=== PATIENT | male | born 1970 | race Hispanic/Latino ===

== ENCOUNTER 2017-10-18 13:43 | Emergency (ER) | payer OTHER ==
[2017-10-18] MEDS ORDERED: CATAPRES PO ONE ×2 (16:54→17:54)
--- NOTE | 2017-10-18 16:54 | Emergency Department Report ---
ED Headache HPI - General Chief Complaint: High BP Stated Complaint: HYPERTENSION/HEADACHE Time Seen by Provider: 10/18/17 16:51 Source: police - History of Present Illness Initial Comments: Patient is a 46-year-old male who is presenting with high blood pressure and headache. Patient does take blood pressurehe has not taken it today. Patient is in police custody. Patient states headache is 8 out of 10 in severity global patient denies nausea vomiting diarrhea headache chest pain shortness of breath at this time. Allergies/Adverse Reactions: Allergies No Known Allergies Allergy (Unverified 10/18/17 16:11) Home Medications: Ambulatory Orders Lisinopril/Hydrochlorothiazide [Zestoretic 10-12.5 mg Tablet] 1 each PO DAILY # 30 tablet 10/18/17 ED Review of Systems ROS: Stated complaint: HYPERTENSION/HEADACHE Other details as noted in HPI Comment: All other systems reviewed and negative ED Past Medical Hx - Past Medical History Previous Medical History?: Yes Hx Hypertension: Yes - Surgical History Past Surgical History?: No - Medications Home Medications: Home Medications Medication Instructions Recorded Confirmed Last Taken Type Lisinopril/Hydrochlorothiazide 1 each PO DAILY #30 tablet 10/18/17 Unknown Rx [Zestoretic 10-12.5 mg Tablet] ED Physical Exam - General Limitations: No Limitations General appearance: alert, in no apparent distress - Head Head exam: Present: atraumatic, normocephalic - Eye Eye exam: Present: normal appearance - ENT ENT exam: Present: mucous membranes moist - Neck Neck exam: Present: normal inspection - Respiratory Respiratory exam: Present: normal lung sounds bilaterally. Absent: respiratory distress - Cardiovascular Cardiovascular Exam: Present: regular rate, normal rhythm. Absent: systolic murmur, diastolic murmur, rubs, gallop - GI/Abdominal GI/Abdominal exam: Present: soft, normal bowel sounds - Rectal Rectal exam: Present: deferred - Extremities Exam Extremities exam: Present: normal inspection - Back Exam Back exam: Present: normal inspection - Neurological Exam Neurological exam: Present: alert, oriented X3 - Psychiatric Psychiatric exam: Present: normal affect, normal mood - Skin Skin exam: Present: warm, dry, intact, normal color. Absent: rash ED Course Vital Signs 10/18/17 10/18/17 10/18/17 16:12 18:45 19:34 Temperature 98.3 F Pulse Rate 79 79 Respiratory 18 16 Rate Blood Pressure 198/109 215/131 Blood Pressure 144/91 [Left] O2 Sat by Pulse 100 Oximetry ED Medical Decision Making - Radiology Data Radiology results: report reviewed Head CT shows no acute process - Medical Decision Making Blood pressure improved with clonidine patient will be discharged in police custody Critical care attestation.: If time is entered above; I have spent that time in minutes in the direct care of this critically ill patient, excluding procedure time. ED Disposition Clinical Impression: Hypertensive urgency Disposition: DC-01 TO HOME OR SELFCARE Is pt being admited?: No Does the pt Need Aspirin: No Condition: Stable Prescriptions: Lisinopril/Hydrochlorothiazide [Zestoretic 10-12.5 mg Tablet] 1 each PO DAILY # 30 tablet Referrals: PRIMARY CARE, [Primary Care Provider] - 3-5 Days
[2017-10-18] MEDS ORDERED: MOTRIN PO ONE (16:55)
--- NOTE | 2017-10-18 17:15 | Cat Scan Report ---
FINAL REPORT EXAM: CT HEAD/BRAIN WO CON HISTORY: headache TECHNIQUE: CT examination of the head without IV contrast PRIORS: None. FINDINGS: No acute air-fluid level visualized in the included air-filled sinuses. Bone windows demonstrate no acute fracture. The brain is without mass, mass effect, hemorrhage, or acute infarct. There is no extra-axial intracranial bleed, brain bleed, or midline shift. The ventricles and sulci are age-appropriate. IMPRESSION: No acute CVA, intracranial bleed, or brain mass
[2017-10-18] MEDS ORDERED: ULTRAM ONE (18:42)
[2017-10-18] MEDS ORDERED: ULTRAM PO ONE (18:52)
[2017-10-18 19:35] VITALS: BP 144/91
== END 2017-10-18 20:11 | disposition home or self-care (01) ==
LOC: ED 13:43
DX: I16.0 Hypertensive urgency (principal); I10 Essential (primary) hypertension
CPT/HCPCS: 70450; 99284

== ENCOUNTER 2017-10-24 15:34 | Inpatient (IN) | payer OTHER ==
[2017-10-24] MEDS ORDERED: ASPIRIN PO ONE (15:47)
[2017-10-24 18:25] LABS: Amorphous Crystals,Urine Few; Bilirubin,Urine NEG (Negative); Blood,Urine NEG (Negative); Color,Urine Yellow (Yellow); Mucus,Urine FEW /HPF; Nitrite,Urine NEG (Negative); Protein,Urine <15 mg/dL mg/dL (Negative)
[2017-10-24 18:43] LABS: Basophils # (Auto) 0.1 K/mm3 (0.0-0.1); Basophils % (Auto) 1.3 % (0.0-1.8); Eosinophils # (Auto) 0.2 K/mm3 (0.0-0.4); Eosinophils % (Auto) 2.1 % (0.0-4.3); Hematocrit 48.4 % (35.5-45.6); Hemoglobin 16.5 gm/dl (11.8-15.2); Lymphocytes # (Auto) 3.2 K/mm3 (1.2-5.4); Lymphocytes % (Auto) 33.7 % (13.4-35.0); Mean Corpuscular HGB Conc 34 % (32-34); Mean Corpuscular Hemoglobin 30 pg (28-32); Mean Corpuscular Volume 88 fl (84-94); Monocytes # (Auto) 0.9 K/mm3 (0.0-0.8); Platelet Count 309 K/mm3 (140-440); Red Blood Count 5.49 M/mm3 (3.65-5.03)
--- NOTE | 2017-10-24 18:44 | XRay Report ---
FINAL REPORT EXAM: XR CHEST 1V AP HISTORY: cp TECHNIQUE: upright single view chest PRIORS: None. FINDINGS: Cardiac and mediastinal contours are unremarkable. No focal pulmonary infiltrate is identified. No pleural fluid collection seen. Pulmonary vasculature is unremarkable. IMPRESSION: Negative single-view chest
[2017-10-24] MEDS ORDERED: ASPIRIN ONE (18:53)
[2017-10-24 18:58] LABS: INR 0.89 (0.87-1.13); Partial Thromboplastin Time 30.8 Sec. (24.2-36.6)
[2017-10-24 19:19] LABS: BUN/Creatinine Ratio 21; Blood Urea Nitrogen 19 mg/dL (9-20); Calcium 9.8 mg/dL (8.4-10.2); Hemolysis Index 9
[2017-10-24 19:21] LABS: Alanine Aminotransferase 20 units/L (7-56); Albumin 4.7 g/dL (3.9-5)
--- NOTE | 2017-10-24 19:27 | Emergency Department Report ---
ED Chest Pain HPI - General Chief Complaint: Chest Pain Stated Complaint: CHEST PAIN Time Seen by Provider: 10/24/17 17:39 Source: patient Mode of arrival: Stretcher Limitations: No Limitations - History of Present Illness Initial Comments: Patient states he's had intermittent chest pain for a week. He claims that after he left and went to prison on his prior visit he developed chest pain that night. He did not complain of chest pain when he was seen by the emergency physician that day per the emergency department record. He was here for headache at that time. Patient states that he's had intermittent chest pain off and on for 8 days. However, he was here on the which was essentially 6 days ago. In any case he states the chest pain has become more nagging and persistent and radiating to his left arm and shoulder over the past 2 days. He was transported via EMS. He had been given nitroglycerin and aspirin I believe at the chair. Doesn't report any response to nitroglycerin. He states that he has never been to an emergency department or evaluation of chest pain at all. He has no cardiac history other than hypertension. He states the chest pain is just "pain". He is unable to describe it further. It is not associated with nausea vomiting dizziness diaphoresis or dyspnea. Patient states he is a smoker and thus he has some shortness of breath periodically. MD Complaint: chest pain -: week(s) Onset: during rest Pain Location: left chest Pain Radiation: LUE Severity: moderate Severity scale (0 -10): 4 Quality: other Consistency: intermittent (cannot describe) Improves With: nothing Worsens With: nothing re: denies: nausea, vomting, diaphoresis, dyspnea, sense of impending doom Other Symptoms: denies: cough, fever, syncope Treatments Prior to Arrival: aspirin, nitroglycerin Aspirin use within the Past 7 Days: (0) No - Related Data Previous Rx's Medication Instructions Recorded Last Taken Type Lisinopril/Hydrochlorothiazide 1 each PO DAILY #30 tablet 10/18/17 Unknown Rx [Zestoretic 10-12.5 mg Tablet] Allergies Allergy/AdvReac Type Severity Reaction Status Date / Time No Known Allergies Allergy Unverified 10/18/17 16:11 Heart Score - HEART Score History: Moderately suspicious EKG: Significant ST-depression Age: 45-65 Risk factors: > 3 risk factors or hx of atherosclerotic disease Troponin: < normal limit HEART Score: 6 - Critical Actions Critical Actions: 4-6 pts:12-16.6% risk of adverse cardiac event. Should be admitted ED Review of Systems ROS: Stated complaint: CHEST PAIN Other details as noted in HPI Constitutional: denies: chills, fever Eyes: denies: eye pain, eye discharge, vision change ENT: denies: ear pain, throat pain Respiratory: shortness of breath (occasionally but not associated with chest pain). denies: cough, wheezing Cardiovascular: chest pain. denies: palpitations Endocrine: no symptoms reported Gastrointestinal: denies: abdominal pain, nausea, diarrhea Genitourinary: denies: urgency, dysuria Musculoskeletal: denies: back pain, joint swelling, arthralgia Skin: denies: rash, lesions Neurological: denies: headache, weakness, paresthesias Psychiatric: denies: anxiety, depression Hematological/Lymphatic: denies: easy bleeding, easy bruising ED Past Medical Hx - Past Medical History Hx Hypertension: Yes Hx CVA: (tia) - Surgical History Past Surgical History?: No - Social History Smoking Status: Current Every Day Smoker Substance Use Type: Marijuana - Medications Home Medications: Home Medications Medication Instructions Recorded Confirmed Last Taken Type Lisinopril/Hydrochlorothiazide 1 each PO DAILY #30 tablet 10/18/17 Unknown Rx [Zestoretic 10-12.5 mg Tablet] ED Physical Exam - General Limitations: No Limitations General appearance: alert, in no apparent distress - Head Head exam: Present: atraumatic, normocephalic - Eye Eye exam: Present: normal appearance, PERRL, EOMI. Absent: scleral icterus - ENT ENT exam: Present: mucous membranes moist - Neck Neck exam: Present: normal inspection. Absent: tenderness, meningismus - Respiratory Respiratory exam: Present: normal lung sounds bilaterally. Absent: respiratory distress - Cardiovascular Cardiovascular Exam: Present: regular rate, normal rhythm. Absent: systolic murmur, diastolic murmur, rubs, gallop - GI/Abdominal GI/Abdominal exam: Present: soft, normal bowel sounds. Absent: distended, tenderness, guarding, rebound, rigid - Rectal Rectal exam: Present: deferred - Extremities Exam Extremities exam: Present: normal inspection - Back Exam Back exam: Present: normal inspection - Neurological Exam Neurological exam: Present: alert, oriented X3, CN II-XII intact. Absent: motor sensory deficit - Psychiatric Psychiatric exam: Present: normal affect, normal mood - Skin Skin exam: Present: warm, dry, intact, normal color. Absent: rash ED Course Vital Signs 10/24/17 10/24/17 10/24/17 15:38 18:07 18:08 Temperature 97.8 F 97.6 F Pulse Rate 83 72 Respiratory 19 14 14 Rate Blood Pressure 110/76 Blood Pressure 135/88 [Left] O2 Sat by Pulse 98 96 96 Oximetry - Reevaluation(s) Reevaluation #1: Patient's history was given to Dr. Wu of the hospitalist service. He stated to bridge the patient to telemetry where the night hospitalist will see the patient. I am going to place a consult to cardiology. I'm also going to place an order for an echocardiogram in the morning. 10/24/17 19:33 10/24/17 19:35 ZACHARIAH score - Zachariah Score Age > 65: (0) No Aspirin use within the Past 7 Days: (0) No 3 or more CAD Risk Factors: (1) Yes 2 or more Angina events in past 24 hrs: (1) Yes Known CAD with more than 50% Stenosis: (0) No Elevated Cardiac Markers: (0) No ST Deviation Greater than 0.5mm: (1) Yes ZACHARIAH Score: 3 ED Medical Decision Making - Lab Data Result diagrams: 10/24/17 18:22 10/24/17 18:22 Laboratory Results - last 24 hr 10/24/17 10/24/17 10/24/17 18:22 18:22 18:22 WBC 9.5 RBC 5.49 H Hgb 16.5 H Hct 48.4 H MCV 88 MCH 30 MCHC 34 RDW 13.0 L Plt Count 309 Lymph % (Auto) 33.7 [place] % (Auto) 9.0 H Eos % (Auto) 2.1 Baso % (Auto) 1.3 Lymph # 3.2 [place] # 0.9 H Eos # 0.2 Baso # 0.1 Seg Neutrophils % 53.9 Seg Neutrophils # 5.1 PT 12.5 INR 0.89 APTT 30.8 Sodium 140 Potassium 4.7 Chloride 97.5 L Carbon Dioxide 28 Anion Gap 19 BUN 19 Creatinine 0.9 Estimated GFR > 60 BUN/Creatinine Ratio 21 Glucose 85 Calcium 9.8 Magnesium Total Bilirubin Direct Bilirubin Indirect Bilirubin AST ALT Alkaline Phosphatase Troponin T < 0.010 NT-Pro-B Natriuret Pep Total Protein Albumin Albumin/Globulin Ratio Urine Color Urine Turbidity Urine pH Ur Specific [place] Urine Protein Urine Glucose (UA) Urine Ketones Urine Blood Urine Nitrite Urine Bilirubin Urine Urobilinogen Ur Leukocyte Esterase Urine WBC (Auto) Urine RBC (Auto) U Epithel Cells (Auto) Amorphous Crystals Urine Mucus 10/24/17 10/24/17 18:22 Unknown WBC RBC Hgb Hct MCV MCH MCHC RDW Plt Count Lymph % (Auto) [place] % (Auto) Eos % (Auto) Baso % (Auto) Lymph # [place] # Eos # Baso # Seg Neutrophils % Seg Neutrophils # PT INR APTT Sodium Potassium Chloride Carbon Dioxide Anion Gap BUN Creatinine Estimated GFR BUN/Creatinine Ratio Glucose Calcium Magnesium 2.30 Total Bilirubin 0.40 Direct Bilirubin < 0.2 Indirect Bilirubin 0.2 AST 12 ALT 20 Alkaline Phosphatase 73 Troponin T NT-Pro-B Natriuret Pep 139.7 Total Protein 7.2 Albumin 4.7 Albumin/Globulin Ratio 1.9 Urine Color Yellow Urine Turbidity Clear Urine pH 6.0 Ur Specific [place] 1.019 Urine Protein <15 mg/dl Urine Glucose (UA) Neg Urine Ketones Neg Urine Blood Neg Urine Nitrite Neg Urine Bilirubin Neg Urine Urobilinogen 4.0 Ur Leukocyte Esterase Neg Urine WBC (Auto) 2.0 Urine RBC (Auto) 2.0 U Epithel Cells (Auto) < 1.0 Amorphous Crystals Few Urine Mucus Few - EKG Data -: EKG Interpreted by [facility] EKG shows normal: sinus rhythm, axis, intervals - EKG Data Interpretation: other (the patient has Q's in the inferolateral leads. He also has inferolateral ST-T wave changes which may be consistent with ischemia.) Critical care attestation.: If time is entered above; I have spent that time in minutes in the direct care of this critically ill patient, excluding procedure time. ED Disposition Clinical Impression: Abnormal EKG Chest pain Qualifiers: Chest pain type: unspecified Qualified Code(s): R07.9 - Chest pain, unspecified Disposition: OP ADMIT IP TO THIS HOSP Is pt being admited?: Yes Does the pt Need Aspirin: Yes Condition: Stable Instructions: Chest Pain (ED) Referrals: PRIMARY CARE, [Primary Care Provider] - 3-5 Days Time of Disposition: 19:36
[2017-10-24 19:30] LABS: Bilirubin,Direct < 0.2 mg/dL (0-0.2)
[2017-10-24] MEDS ORDERED: MILK OF MAGNESIA PO PRN (22:53)
[2017-10-24] MEDS ORDERED: DULCOLAX PR PRN (22:53)
--- NOTE | 2017-10-24 22:55 | History and Physical Report ---
History of Present Illness Date of examination: 10/24/17 Date of admission: 10/24/17 19:39 History of present illness: 68-year-old man with a history of diabetes, hypertension was brought to the emergency room for chest pain , Chest pain is in the left substernal area which she describes a dull pain for 8 days, intermittent every 10 minutes, intensity 5 /10, radiating to left shoulder, he cannot identify exacerbating or relieving factors. Denies nausea vomiting, shortness rate, diaphoresis, palpitation Review of system Constitutional: no fever, no chills, no weight loss Ears, eyes, nose, mouth and throat: no nasal congestion, no nasal discharge, no sinus pressure, no vision change, no red eye. Neck: No neck pain or rigidity. Cardiovascular: no orthopnea, no palpitations, no leg swelling Respiratory: No cough, no congestion, no wheezing Gastrointestinal: abdominal pain, hematochezia, no nausea, no vomiting Genitourinary : no dysuria, frequency , no hematuria Musculoskeletal: no joint swelling or muscle ache Integumentary: no rash, no pruritis Neurological: no parathesias, no focal weakness Endocrine: no cold or heat intolerance, no polyuria or polydipsia Hematologic/Lymphatic: no easy bruising, no easy bleeding, no gland swelling Allergic/Immunologic: no urticaria, no angioedema. PAST MEDICAL HISTORY hypertension PAST SURGICAL HISTORY: None FAMILY HISTORY: Hypertention SOCIAL HISTORY: Denies one pack a day, marijuana use, no alcohol Medications and Allergies Allergies Allergy/AdvReac Type Severity Reaction Status Date / Time No Known Allergies Allergy Unverified 10/18/17 16:11 Home Medications Medication Instructions Recorded Confirmed Last Taken Type Lisinopril/Hydrochlorothiazide 1 each PO DAILY #30 tablet 10/18/17 10/24/17 Unknown Rx [Zestoretic 10-12.5 mg Tablet] Exam - Physical Exam Narrative exam: Gen. appearance: Patient lying in bed in no acute distress HEENT: Normocephalic/atraumatic, pupils equal round reactive to light, extra occular movement intact, no scleral icterus, no JVD or thyromegaly or nodule, neck is supple, mucous membrane moist, no erythema or exudate Heart: S1-S2, regular rate and rhythm Lungs: Clear to auscultation bilateral breathing comfortable Abdomen: Positive bowel sounds, nontender, nondistended, no organomegaly Extremities: No edema, cyanosis, clubbing Neuro:: Oriented 3 , cranial nerves II-12 intact, speech, motor intact Skin: No rash, nodules, warm dry - Constitutional Vitals: Temp Pulse Resp BP Pulse Ox 98.4 F 84 34 H 119/79 98 10/24/17 20:51 10/24/17 20:41 10/24/17 20:41 10/24/17 20:41 10/24/17 20:41 Results - Labs CBC & Chem 7: 10/24/17 18:22 10/24/17 18:22 Labs: Abnormal lab results 10/24/17 10/24/17 Range/Units 18:22 18:22 RBC 5.49 H (3.65-5.03) M/mm3 Hgb 16.5 H (11.8-15.2) gm/dl Hct 48.4 H (35.5-45.6) % RDW 13.0 L (13.2-15.2) % [place] % (Auto) 9.0 H (0.0-7.3) % [place] # 0.9 H (0.0-0.8) K/mm3 Chloride 97.5 L (98-107) mmol/L - Imaging and Cardiology EKG: image reviewed Chest x-ray: image reviewed Assessment and Plan Assessment Chest pain, rule out ACS Hypertension Plan Admit to medicine Check cardiac enzymes, stress tests Start aspirin, pain medication, DVT prophylaxis Continue appropriate outpatient medications
[2017-10-25 00:01] LABS: Creatine Kinase MB 1.2 ng/mL (0.0-4.0)
[2017-10-25] MEDS: PERCOCET 5/325 PO PRN ×3 (01:53→21:06)
[2017-10-25 05:55] LABS: Hematocrit 49.5 % (35.5-45.6); Hemoglobin 16.4 gm/dl (11.8-15.2); Mean Corpuscular HGB Conc 33 % (32-34); Mean Corpuscular Hemoglobin 30 pg (28-32); Mean Corpuscular Volume 90 fl (84-94); Platelet Count 299 K/mm3 (140-440); Red Cell Distribution Width 12.9 % (13.2-15.2)
[2017-10-25 06:11] LABS: BUN/Creatinine Ratio 23; Blood Urea Nitrogen 18 mg/dL (9-20)
[2017-10-25 06:12] LABS: Hemolysis Index 3
[2017-10-25 06:16] LABS: Creatine Kinase MB 1.4 ng/mL (0.0-4.0)
[2017-10-25 08:22] LABS: Band Neutrophils # (Manual) 0.5 K/mm3; Basophils % (Manual) 0 % (0.0-1.8); RBC Morphology Normal; Total Cells Counted 100
[2017-10-25] MEDS ORDERED: NON-FORMULARY (Lisinopril/Hydrochlorothiazide [Zestoretic 10-12.5 Mg Tablet] 1 EACH) PO SCH (10:00)
[2017-10-25] MEDS ORDERED: LEXISCAN IV ONE (10:13)
[2017-10-25] MEDS ORDERED: AMINOPHYLLINE IV ONE ×2 (10:45→11:00)
[2017-10-25] MEDS ORDERED: ZOFRAN ONE (10:59)
[2017-10-25] MEDS: ZOFRAN IV PRN (11:01)
--- NOTE | 2017-10-25 12:26 | Event Note ---
Date: 10/25/17 Detailed cardiology consultation dictated. A: #1: Chest pain #2: HTN #3: Chronic tobacco smoking P: Pt underwent lexiscan MPI stress test this AM which was positive for inferior ischemia, EF 50%. Coronary angiography recommended for definitive diagnosis. Indications, potential risks and benefits of LHC reviewed with pt and he is agreeable to proceed in AM. NPO after MN. Christopher SCHULTZ NP / DR. LOPEZ NAYLOR
[2017-10-25] MEDS ORDERED: NACL 0.9% 500 ML 500 ML IV SCH (14:00)
[2017-10-25] MEDS ORDERED: AMBIEN PO PRN (16:02)
[2017-10-25] MEDS: ASPIRIN PO SCH (16:29)
--- NOTE | 2017-10-25 18:50 | Progress Note ---
Assessment and Plan Assessment and plan: --Chest pain/acute coronary syndrome; patient had abnormal stress test Continue current cardiac medications, possible heart cath tomorrow, cardiology following --Hypertension; moderate control, continue current antihypertensives and when necessary medications --Ongoing tobacco use; smoking cessation counseling done, advised nicotine patch as needed --DVT prophylaxis; with Lovenox Closely monitor the patient and adjust management as needed Marco of care reviewed with the patient and his summer law associate at the bedside History Interval history: Patient seen and evaluated in his room medical records reviewed Security officers at the bedside Patient underwent stress test which was abnormal, cardiology planning left heart catheterization tomorrow Patient has no new complaints Hospitalist Physical - Constitutional Vitals: Temp Pulse Resp BP Pulse Ox 98.5 F 67 20 128/88 98 10/25/17 04:30 10/25/17 16:00 10/25/17 13:47 10/25/17 15:40 10/25/17 15:40 General appearance: Present: no acute distress, well-nourished - EENT Eyes: Present: PERRL, EOM intact - Neck Neck: Present: supple, normal ROM - Respiratory Respiratory effort: normal Respiratory: bilateral: diminished, negative: rales, rhonchi, wheezing - Cardiovascular Rhythm: regular Heart Sounds: Present: S1 & S2 - Extremities Extremities: no ischemia, No edema - Abdominal General gastrointestinal: soft, non-tender, non-distended, normal bowel sounds - Integumentary Integumentary: Present: clear, warm - Psychiatric Psychiatric: appropriate mood/affect, cooperative - Neurologic Neurologic: CNII-XII intact, moves all extremities Results - Labs CBC & Chem 7: 10/25/17 04:42 10/25/17 04:42 Labs: Laboratory Last Values WBC 13.3 K/mm3 (4.5-11.0) H 10/25/17 04:42 RBC 5.50 M/mm3 (3.65-5.03) H 10/25/17 04:42 Hgb 16.4 gm/dl (11.8-15.2) H 10/25/17 04:42 Hct 49.5 % (35.5-45.6) H 10/25/17 04:42 MCV 90 fl (84-94) 10/25/17 04:42 MCH 30 pg (28-32) 10/25/17 04:42 MCHC 33 % (32-34) 10/25/17 04:42 RDW 12.9 % (13.2-15.2) L 10/25/17 04:42 Plt Count 299 K/mm3 (140-440) 10/25/17 04:42 Lymph % (Auto) 33.7 % (13.4-35.0) 10/24/17 18:22 [place] % (Auto) 9.0 % (0.0-7.3) H 10/24/17 18:22 Eos % (Auto) 2.1 % (0.0-4.3) 10/24/17 18:22 Baso % (Auto) 1.3 % (0.0-1.8) 10/24/17 18:22 Lymph # Steel Welder 10/25/17 04:42 [place] # 0.9 K/mm3 (0.0-0.8) H 10/24/17 18:22 Eos # 0.2 K/mm3 (0.0-0.4) 10/24/17 18:22 Baso # 0.1 K/mm3 (0.0-0.1) 10/24/17 18:22 Add Manual Diff Complete 10/25/17 04:42 Total Counted 100 10/25/17 04:42 Seg Neutrophils % 53.9 % (40.0-70.0) 10/24/17 18:22 Seg Neuts % (Manual) 56.0 % (40.0-70.0) 10/25/17 04:42 Band Neutrophils % 4.0 % 10/25/17 04:42 Lymphocytes % (Manual) 32.0 % (13.4-35.0) 10/25/17 04:42 Reactive Lymphs % (Man) 0 % 10/25/17 04:42 Monocytes % (Manual) 7.0 % (0.0-7.3) 10/25/17 04:42 Eosinophils % (Manual) 1.0 % (0.0-4.3) 10/25/17 04:42 Basophils % (Manual) 0 % (0.0-1.8) 10/25/17 04:42 Metamyelocytes % 0 % 10/25/17 04:42 Myelocytes % 0 % 10/25/17 04:42 Promyelocytes % 0 % 10/25/17 04:42 Blast Cells % 0 % 10/25/17 04:42 Nucleated RBC % Not Reportable 10/25/17 04:42 Seg Neutrophils # 5.1 K/mm3 (1.8-7.7) 10/24/17 18:22 Seg Neutrophils # Man 7.4 K/mm3 (1.8-7.7) 10/25/17 04:42 Band Neutrophils # 0.5 K/mm3 10/25/17 04:42 Lymphocytes # (Manual) 4.3 K/mm3 (1.2-5.4) 10/25/17 04:42 Abs React Lymphs (Man) 0.0 K/mm3 10/25/17 04:42 Monocytes # (Manual) 0.9 K/mm3 (0.0-0.8) H 10/25/17 04:42 Eosinophils # (Manual) 0.1 K/mm3 (0.0-0.4) 10/25/17 04:42 Basophils # (Manual) 0.0 K/mm3 (0.0-0.1) 10/25/17 04:42 Metamyelocytes # 0.0 K/mm3 10/25/17 04:42 Myelocytes # 0.0 K/mm3 10/25/17 04:42 Promyelocytes # 0.0 K/mm3 10/25/17 04:42 Blast Cells # 0.0 K/mm3 10/25/17 04:42 WBC Morphology Not Reportable 10/25/17 04:42 Hypersegmented Neuts Not Reportable 10/25/17 04:42 Hyposegmented Neuts Not Reportable 10/25/17 04:42 Hypogranular Neuts Not Reportable 10/25/17 04:42 Smudge Cells Not Reportable 10/25/17 04:42 Toxic Granulation Not Reportable 10/25/17 04:42 Toxic Vacuolation Not Reportable 10/25/17 04:42 Dohle Bodies Not Reportable 10/25/17 04:42 Pelger-Huet Anomaly Not Reportable 10/25/17 04:42 Veena Rods Not Reportable 10/25/17 04:42 Platelet Estimate Not Reportable 10/25/17 04:42 Clumped Platelets Not Reportable 10/25/17 04:42 Plt Clumps, EDTA Not Reportable 10/25/17 04:42 Large Platelets Not Reportable 10/25/17 04:42 Giant Platelets Not Reportable 10/25/17 04:42 Platelet Satelliting Not Reportable 10/25/17 04:42 Plt Morphology Comment Not Reportable 10/25/17 04:42 RBC Morphology Normal 10/25/17 04:42 Dimorphic RBCs Not Reportable 10/25/17 04:42 Polychromasia Not Reportable 10/25/17 04:42 Hypochromasia Not Reportable 10/25/17 04:42 Poikilocytosis Not Reportable 10/25/17 04:42 Anisocytosis Not Reportable 10/25/17 04:42 Microcytosis Not Reportable 10/25/17 04:42 Macrocytosis Not Reportable 10/25/17 04:42 Spherocytes Not Reportable 10/25/17 04:42 Pappenheimer Bodies Not Reportable 10/25/17 04:42 Sickle Cells Not Reportable 10/25/17 04:42 Target Cells Not Reportable 10/25/17 04:42 Tear Drop Cells Not Reportable 10/25/17 04:42 Ovalocytes Not Reportable 10/25/17 04:42 Helmet Cells Not Reportable 10/25/17 04:42 [place] Bodies Not Reportable 10/25/17 04:42 [place] Rings Not Reportable 10/25/17 04:42 Jeremy Cells Not Reportable 10/25/17 04:42 Bite Cells Not Reportable 10/25/17 04:42 Crenated Cell Not Reportable 10/25/17 04:42 Elliptocytes Not Reportable 10/25/17 04:42 Acanthocytes (Spur) Not Reportable 10/25/17 04:42 Rouleaux Not Reportable 10/25/17 04:42 Hemoglobin C Crystals Not Reportable 10/25/17 04:42 Schistocytes Not Reportable 10/25/17 04:42 Malaria parasites Not Reportable 10/25/17 04:42 Jalen Bodies Not Reportable 10/25/17 04:42 Hem Pathologist Commnt No 10/25/17 04:42 PT 12.5 Sec. (12.2-14.9) 10/24/17 18:22 INR 0.89 (0.87-1.13) 10/24/17 18:22 APTT 30.8 Sec. (24.2-36.6) 10/24/17 18:22 Sodium 139 mmol/L (137-145) 10/25/17 04:42 Potassium 4.3 mmol/L (3.6-5.0) 10/25/17 04:42 Chloride 96.9 mmol/L (98-107) L 10/25/17 04:42 Carbon Dioxide 27 mmol/L (22-30) 10/25/17 04:42 Anion Gap 19 mmol/L 10/25/17 04:42 BUN 18 mg/dL (9-20) 10/25/17 04:42 Creatinine 0.8 mg/dL (0.8-1.5) 10/25/17 04:42 Estimated GFR > 60 ml/min 10/25/17 04:42 BUN/Creatinine Ratio 23 % 10/25/17 04:42 Glucose 86 mg/dL (75-100) 10/25/17 04:42 Calcium 9.0 mg/dL (8.4-10.2) 10/25/17 04:42 Magnesium 2.30 mg/dL (1.7-2.3) 10/24/17 18:22 Total Bilirubin 0.40 mg/dL (0.1-1.2) 10/24/17 18:22 Direct Bilirubin < 0.2 mg/dL (0-0.2) 10/24/17 18:22 Indirect Bilirubin 0.2 mg/dL 10/24/17 18:22 AST 12 units/L (5-40) 10/24/17 18:22 ALT 20 units/L (7-56) 10/24/17 18:22 Alkaline Phosphatase 73 units/L (35-129) 10/24/17 18:22 Total Creatine Kinase 69 units/L (55-170) 10/25/17 04:42 CK-MB (CK-2) 1.4 ng/mL (0.0-4.0) 10/25/17 04:42 CK-MB (CK-2) Rel Index 2.0 (0-4) 10/25/17 04:42 Troponin T < 0.010 ng/mL (0.00-0.029) 10/25/17 04:42 NT-Pro-B Natriuret Pep 139.7 pg/mL (0-450) 10/24/17 18:22 Total Protein 7.2 g/dL (6.3-8.2) 10/24/17 18:22 Albumin 4.7 g/dL (3.9-5) 10/24/17 18:22 Albumin/Globulin Ratio 1.9 % 10/24/17 18:22 Urine Color Yellow (Yellow) 10/24/17 Unknown Urine Turbidity Clear (Clear) 10/24/17 Unknown Urine pH 6.0 (5.0-7.0) 10/24/17 Unknown Ur Specific [place] 1.019 (1.003-1.030) 10/24/17 Unknown Urine Protein <15 mg/dl mg/dL (Negative) 10/24/17 Unknown Urine Glucose (UA) Neg mg/dL (Negative) 10/24/17 Unknown Urine Ketones Neg mg/dL (Negative) 10/24/17 Unknown Urine Blood Neg (Negative) 10/24/17 Unknown Urine Nitrite Neg (Negative) 10/24/17 Unknown Urine Bilirubin Neg (Negative) 10/24/17 Unknown Urine Urobilinogen 4.0 mg/dL (<2.0) 10/24/17 Unknown Ur Leukocyte Esterase Neg (Negative) 10/24/17 Unknown Urine WBC (Auto) 2.0 /HPF (0.0-6.0) 10/24/17 Unknown Urine RBC (Auto) 2.0 /HPF (0.0-6.0) 10/24/17 Unknown U Epithel Cells (Auto) < 1.0 /HPF (0-13.0) 10/24/17 Unknown Amorphous Crystals Few 10/24/17 Unknown Urine Mucus Few /HPF 10/24/17 Unknown
--- NOTE | 2017-10-25 22:05 | Treadmill Report ---
NUCLEAR STRESS TEST REPORT The patient is brought to the Cardiology lab and nuclear stress test is performed by administering Lexiscan. Post-Lexiscan administration, the patient developed chest discomfort, which has improved with administration of aminophylline. Post-stress images revealed inferoseptal reduced perfusion. Modest improvement in these images noted during rest. Accompanying gated study shows an ejection fraction of 50%. IMPRESSION: Nuclear stress test is noted to be abnormal and is consistent with previous inferoseptal myocardial infarction with moderate residual ischemia. Left ventricular systolic function is satisfactory with ejection fraction of 50%. Inferior hypokinesis is present. Suggest clinical correlation. JOB# [id number] KBM/NTS
--- NOTE | 2017-10-25 22:15 | Consultation ---
CARDIOLOGY EVALUATION REASON FOR CONSULTATION: Chest pain. HISTORY OF PRESENT ILLNESS: The patient is a 46-year-old gentleman, who was brought to the Emergency Room with chest pain. This has been going on for about 9 days and this is an intermittent pain, dull, and sometimes is a constant discomfort. No relationship to any activity. Prior to this, he did not have any history of cardiac problems. About a month and half ago, he was diagnosed to have hypertension and he smokes 1 pack a day. Apparently, he has been in [facility] for reasons unknown. REVIEW OF SYSTEMS: HEAD, EYES, EARS, NOSE, AND THROAT: No symptoms. ENDOCRINE: No history of diabetes or thyroid problems. GASTROINTESTINAL: No abdominal pain, nausea, or vomiting. Bowel habits have been regular. GENITOURINARY: No symptoms. CENTRAL NERVOUS SYSTEM: history of cerebrovascular accident or convulsive disorder. PSYCHIATRIC: No symptoms. HEMATOLOGY/ONCOLOGY: No symptoms. PERSONAL HISTORY: Smokes 1 pack per day, nonalcoholic. CURRENT MEDICATIONS: Lisinopril with hydrochlorothiazide 10/12.5 daily. PHYSICAL EXAMINATION: GENERAL: Adult male, well built, well nourished, in no distress. VITAL SIGNS: Blood pressure 144/92, pulse 72, pulse oximetry ____. Afebrile. HEAD, EYES, EARS, NOSE, AND THROAT: Unremarkable. NECK: Supple. No thyromegaly. Both carotids are palpable and equal. Neck veins are flat. CHEST: Symmetrical. LUNGS: Clear. HEART: S1, S2 are heard well. No S3. ABDOMEN: Soft, nontender. EXTREMITIES: No edema or calf tenderness. Peripheral pulses are satisfactory. IMPRESSION: 1. Chest pain, atypical. 2. History of hypertension. 3. Chronic smoking. LABORATORY DATA: Hemoglobin 16.4, WBC 13.3. Sodium 139, potassium 4.3, BUN 18, creatinine 0.8. Cardiac enzymes are negative. EKG is sinus rhythm, small Q-waves in leads II, III and aVF ____. The patient is seen for cardiac evaluation. Clinically, cardiac status is satisfactory. No acute changes are noted on the echocardiogram and cardiac enzymes are negative. The patient to have a stress thallium test today. We will review the same and decide further management. Thank you for allowing me to participate in the care of this gentleman. [facility]# [id number] ARI/ZHANNA LAGOS
[2017-10-26 04:57] LABS: Basophils # (Auto) 0.1 K/mm3 (0.0-0.1); Basophils % (Auto) 1.2 % (0.0-1.8); Eosinophils # (Auto) 0.4 K/mm3 (0.0-0.4); Eosinophils % (Auto) 3.3 % (0.0-4.3); Hematocrit 51.3 % (35.5-45.6); Hemoglobin 17.6 gm/dl (11.8-15.2); Lymphocytes # (Auto) 3.8 K/mm3 (1.2-5.4); Mean Corpuscular HGB Conc 34 % (32-34); Mean Corpuscular Hemoglobin 31 pg (28-32); Mean Corpuscular Volume 89 fl (84-94); Monocytes # (Auto) 0.9 K/mm3 (0.0-0.8); Monocytes % (Auto) 8.1 % (0.0-7.3); Platelet Count 279 K/mm3 (140-440); Red Blood Count 5.75 M/mm3 (3.65-5.03); Red Cell Distribution Width 12.8 % (13.2-15.2)
[2017-10-26 05:07] LABS: INR 0.91 (0.87-1.13)
[2017-10-26 05:24] LABS: BUN/Creatinine Ratio 19; Blood Urea Nitrogen 19 mg/dL (9-20); Calcium 8.6 mg/dL (8.4-10.2); Chol/HDL Ratio 4.41 %; HDL Cholesterol 36 mg/dL (40-59); Hemolysis Index 8; LDL Cholesterol,Direct 100 mg/dL (50-130)
[2017-10-26] MEDS: ZESTRIL PO SCH ×2 (07:58→10:21)
[2017-10-26] MEDS: HCTZ PO SCH ×2 (07:58→10:21)
[2017-10-26] MEDS ORDERED: HEPARIN/NS 5000 UNIT/500ML(CATH LAB) 1,000 ML IR ONE (08:18)
[2017-10-26] MEDS ORDERED: NITROGLYCERIN SYRINGE 0 ML ONE (08:18)
[2017-10-26] MEDS ORDERED: NACL 0.9% 500 ML 500 ML ONE (08:19)
[2017-10-26] MEDS ORDERED: VERSED ONE (08:19)
[2017-10-26] MEDS ORDERED: SUBLIMAZE ONE (08:20)
[2017-10-26] MEDS: CALAN ONE ×2 (08:41→08:49)
[2017-10-26] MEDS: HEPARIN 10,000 UNITS/10 ML ONE ×2 (08:41→08:49)
[2017-10-26] MEDS: XYLOCAINE 2% INFILTRATI ONE ×2 (08:41→08:47)
[2017-10-26] MEDS ORDERED: LOPRESSOR PO SCH (10:00)
[2017-10-26] MEDS ORDERED: PLAVIX PO SCH (10:00)
[2017-10-26] MEDS ORDERED: IMDUR PO SCH (10:00)
--- NOTE | 2017-10-26 10:02 | Progress Note ---
Assessment and Plan Assessment: CAD Chest pain, atypical - chronic for past 3-4 years per pt report; Guillermina negative for AMI; ECG with NAF HTN Tobacco use - cessation encouraged Plan: Pt s/p LHC this AM which showed chronic occlusion of RCA. Will optimize anti- ischemic regimen and consider PCI as OP if chest pain persists. Currently stable cardiac status. Pt may discharge this afternoon from cardiology standpoint. Follow up in our [place] office with Dr. LOPEZ Ryan on 10/31/2017 @ 1:30PM. The patient has been seen in conjunction with Dr. Faust who agrees with the assessment and plan of care. Subjective Date of service: 10/26/17 Principal diagnosis: cp Interval history: pt for [facility]. no current complaints. Objective Last Vital Signs Temp 97.6 F 10/26/17 01:47 Pulse 77 10/26/17 01:47 Resp 18 10/26/17 01:47 BP 143/95 10/26/17 01:47 Pulse Ox 97 10/26/17 01:47 - Physical Examination General: No Apparent Distress HEENT: Positive: PERRL, Normocephaly, Mucus Membranes Moist Neck: Positive: neck supple, trachea midline Cardiac: Positive: Reg Rate and Rhythm, S1/S2 Lungs: Positive: clear to auscultation Neuro: Positive: Grossly Intact Abdomen: Positive: Soft. Negative: Tender Skin: Positive: Clear. Negative: Rash, Wound Musculoskeletal: No Fluid Collection, No Pain, Normal Range of Motion Extremities: Absent: edema - Labs and Meds Coagulation 10/26/17 Range/Units 04:37 PT 12.7 (12.2-14.9) Sec. INR 0.91 (0.87-1.13) Lipids 10/26/17 Range/Units 04:37 Triglycerides 116 (2-149) mg/dL Cholesterol 159 (50-199) mg/dL HDL Cholesterol 36 L (40-59) mg/dL Cholesterol/HDL Ratio 4.41 % CBC 10/26/17 Range/Units 04:37 WBC 11.0 (4.5-11.0) K/mm3 RBC 5.75 H (3.65-5.03) M/mm3 Hgb 17.6 H (11.8-15.2) gm/dl Hct 51.3 H (35.5-45.6) % Plt Count 279 (140-440) K/mm3 Lymph # 3.8 (1.2-5.4) K/mm3 [place] # 0.9 H (0.0-0.8) K/mm3 Eos # 0.4 (0.0-0.4) K/mm3 Baso # 0.1 (0.0-0.1) K/mm3 Comprehensive Metabolic Panel 10/26/17 Range/Units 04:37 Sodium 137 (137-145) mmol/L Potassium 5.0 (3.6-5.0) mmol/L Chloride 96.8 L (98-107) mmol/L Carbon Dioxide 29 (22-30) mmol/L BUN 19 (9-20) mg/dL Creatinine 1.0 (0.8-1.5) mg/dL Glucose 90 (75-100) mg/dL Calcium 8.6 (8.4-10.2) mg/dL - Imaging and Cardiology EKG: image reviewed Echo: report reviewed Cardiac cath: report reviewed - Telemetry EKG Rhythm: Sinus Rhythm
[2017-10-26] MEDS: ASPIRIN PO SCH (10:20)
[2017-10-26] MEDS: TYLENOL PO PRN ×2 (10:21→14:40)
--- NOTE | 2017-10-26 10:41 | Cardiac Catherization Report ---
CARDIAC CATHETERIZATION INDICATION FOR PROCEDURE: The patient is a 46-year-old white gentleman with a history of chronic chest pains of 3-4 years' duration. He had recently increasing chest pains while incarcerated. He was brought to the [facility] for evaluation of chest pain. Enzymes were unremarkable. Underwent stress nuclear imaging, which showed evidence of inferior ischemia, hence scheduled for cardiac catheterization for definitive diagnosis and treatment. The patient is aware of the procedure, potential complications, and the alternatives of therapy available. DESCRIPTION OF PROCEDURE: The patient was brought to the catheterization laboratory in a fasting condition. The right wrist area and forearm thoroughly cleansed with Betadine solution and sterile drapes were applied. Local anesthesia was achieved using 2% Xylocaine. Right radial artery puncture was made using 21-gauge arterial puncture needle. Subsequently, 5-Bhutanese sheath was introduced. A 5-Bhutanese multipurpose catheter was used to obtain the angiograms of the right coronary artery in multiple views followed by angiograms of the left coronary artery and left ventriculogram done in SALCEDO projection and AKILA projection using hand injection. At the end of the procedure, catheter and sheath were removed. Good hemostasis was achieved. The patient was sedated with IV Versed and fentanyl. After evaluating for appropriateness for moderate sedation, the patient received IV Versed and fentanyl at 8:47 a.m. and was monitored hemodynamically and also electrocardiographically with pulse oximetry up to 9:05 a.m. in the catheterization laboratory when he was transferred to the room in stable condition. Following findings were noted. HEMODYNAMICS: 1. Opening aortic pressure 142/78, left ventricular pressure 145/16, no gradient across the aortic valve. Estimated ejection fraction of 55%. 2. Left ventriculogram done in SALCEDO and AKILA projection showed normal sized left ventricle with normal contractility. End-diastolic and systolic volumes are normal. Only limited amount of dye was injected. 3. Right coronary artery shows mild diffuse calcifications throughout with occlusion in the distal part of the RCA with excellent collaterals on LCA injection. 4. Left coronary artery shows mild diffuse calcifications throughout, left main without significant disease. LAD and its diagonal branches show mild diffuse calcifications, but no obstructive lesions. Circumflex artery represented by two marginal branches. Proximal marginal branch shows ostial proximal lesion 70-80% with a medium to large distal vessel, distal vessel without significant disease. Distally there is a second marginal branch which is small with ostial 60-70% lesion. Collaterals as mentioned above, excellent collaterals noted to the distal RCA. FINAL IMPRESSION: The patient has at this time normal LV function with the LAD and its branches without significant disease and RCA which is a dominant vessel is chronically occluded with excellent collaterals. The patient does have obtuse marginal branch lesion (which is fairly large vessel) at the ostium and this is very angulated, complex lesion. At this time, considering the patient is not on any medical therapy, we will initiate medical therapy. If he is still symptomatic, then may consider intervention of the marginal branch and may be chronically occluded RCA at tertiary [place] [facility] where bypass surgery is available. The patient's symptoms are chronic of many years' duration, on no significant anginal medication. Findings were discussed with the patient and discussed with the healthcare provider at [facility]. The patient will be initiated on beta lefty and nitrates in addition to aspirin and statin. We will have medical followup in the office and if the patient continues to have symptoms, may consider intervention of the marginal branch and RCA at tertiary [place]. The patient tolerated the procedure well. No untoward complications were noted. JOB# [id number] KATIANA/ZHANNA LAGOS
[2017-10-26 12:40] VITALS: BP 121/78
[2017-10-26] MEDS: ZOFRAN IV PRN (13:23)
--- NOTE | 2017-10-26 14:07 | Discharge Summary ---
Providers - Providers Date of Admission: 10/24/17 19:39 Date of discharge: 10/26/17 Attending physician: YUE GONZALEZ 10/24/17 19:37 Consult to Physician [CONS] Urgent Consulting Provider: MARELY DUCKWORTH Reason For Exam: chest pain and abnormal EKG Notified:: no 10/26/17 09:57 Consult to Cardiac Rehabilitation [CONS] Routine Reason For Exam: Cardiac Rehab Evaluation Primary care physician: DANCE COACH Hospitalization Reason for admission: Chest pain Condition: Stable Pertinent studies: Chest x-ray; normal study Echocardiogram; ejection fraction 45-50%, mild concentric LVH Stress test; nuclear stress test is noted to be abnormal and is consistent with previous inferoseptal myocardial infarction with moderate residual ischemia Left ventricle systolic function is satisfactory with ejection fraction of 50%, inferior hypokinesis Heart Catheterization; normal LV function with the LAD and its branches without significant disease RCA dominant vessel chronically occluded with excellent collaterals, complex lesion obtuse marginal Advice to initiate medical therapy, follow-up with slitter and rewinder , if no improvement with medical therapy , then transferred to tertiary center for bypass surgery Hospital course: A pleasant 68-year-old male patient with significant history of diabetes hypertension was brought by the security officers with left-sided chest pain Patient was initially evaluated and admitted to the hospital subsequently evaluated by cardiology Patient had extensive cardiac workup stay EKG, echocardiogram, stress test and subsequently left heart catheterization Noted to have coronary artery disease as detailed on left heart catheterization report, cardiology advised surgical management and the platelets beta blockers statins and nitrates Plan advised to follow in the office for further evaluation and management, possible PCI, if no improvement with medical management, then, possible transfer to tertiary care center for possible CABG/vascular surgery. Today patient is comfortable in bed no new complaints, Vital signs are stable [id number] evaluation physical examination done by nd prior to discharge is unremarkable Patient is hemodynamically and clinically stable at discharge Strongly advised to quit tobacco use. Advised compliance with medications. Advised to follow with primary care physician within to 3 days Patient verbalized understanding Cardiology cleared the patient for discharge Discharge diagnosis; --Coronary artery disease; --Hypertension; moderate control, --Ongoing tobacco use; smoking cessation counseling done, --Dyslipidemia; on statin Disposition: [id number]/[place]-[address]/LAW ENFORCEMENT Time spent for discharge: 32 min Core Measure Documentation - Palliative Care Palliative Care/ Comfort Measures: Not Applicable - Core Measures Any of the following diagnoses?: none Exam - Constitutional Vitals: Temp Pulse Resp BP Pulse Ox 97.5 F L 82 18 109/78 97 10/26/17 07:40 10/26/17 12:03 10/26/17 10:00 10/26/17 12:03 10/26/17 12:03 General appearance: Present: no acute distress, well-nourished - EENT Eyes: Present: PERRL, EOM intact ENT: hearing intact, clear oral mucosa - Neck Neck: Present: supple, normal ROM - Respiratory Respiratory effort: normal Respiratory: negative: rales, rhonchi, wheezing - Cardiovascular Rhythm: regular Heart Sounds: Present: S1 & S2 - Extremities Extremities: no ischemia, No edema Peripheral Pulses: within normal limits - Abdominal General gastrointestinal: Present: soft, non-tender, non-distended, normal bowel sounds Male genitourinary: Present: normal - Integumentary Integumentary: Present: clear, warm - Musculoskeletal Musculoskeletal: strength equal bilaterally - Psychiatric Psychiatric: appropriate mood/affect, cooperative - Neurologic Neurologic: CNII-XII intact, moves all extremities Plan Activity: no restrictions Diet: other (cardiac diet) Special Instructions: smoking cessation Additional Instructions: Follow up in our [place] office with Dr. LOPEZ Naylor on 10/31/2017 @ 1:30PM. Follow up with: YFN NAYLOR MD [Staff Physician] - 10/31/17 1:30 pm PRIMARY CARE, [Primary Care Provider] - 3-5 Days Forms: Work/School Release Form Prescriptions: AtorvaSTATin [Lipitor] 40 mg PO QHS #30 tablet Clopidogrel [Plavix] 75 mg PO QDAY #30 tablet ISOSORBIDE MONOnitrate [Imdur ER] 30 mg PO QDAY #30 tablet
== END 2017-10-26 16:31 | disposition home or self-care (01) | DRG 287 ==
LOC: ED 15:34 → EEVIPCON 19:39 → 4A 19:39
PROVIDERS: ADMIT Internal Medicine; ATTEND Internal Medicine
PROC: 4A023N7 Measurement of Cardiac Sampling and Pressure, Left Heart, Percutaneous Approach (ICD-10-PCS; principal; 2017-10-26)
PROC: B2111ZZ Fluoroscopy of Multiple Coronary Arteries using Low Osmolar Contrast (ICD-10-PCS; 2017-10-26)
PROC: B2151ZZ Fluoroscopy of Left Heart using Low Osmolar Contrast (ICD-10-PCS; 2017-10-26)
DX: I25.10 Atherosclerotic heart disease of native coronary artery without angina pectoris (principal); I10 Essential (primary) hypertension; F17.200 Nicotine dependence, unspecified, uncomplicated; F12.90 Cannabis use, unspecified, uncomplicated; E11.9 Type 2 diabetes mellitus without complications; Z82.49 Family history of ischemic heart disease and other diseases of the circulatory system; Z71.6 Tobacco abuse counseling
CPT/HCPCS: 36415; 71045; 78452; 80048; 80061; 80074; 81001; 82550; 82553; 82962; 83735; 83880; 84484; 85007; 85025; 85610; 85730; 93005; 93010; 93017; 93306; 93458; 96374; 96375; 99285; A9502; C1894; J0280; J1644; J2250; J2405; J2785; J3010; J7040; Q9967

== ENCOUNTER 2022-04-14 15:58 | Emergency (ER) | payer OTHER ==
[2022-04-14] MEDS ORDERED: ASPIRIN 81 MG TAB CHEW PO ONE (17:50)
[2022-04-14] MEDS ORDERED: hydrALAZINE 20 MG/1 ML INJ IV ONE (18:03)
[2022-04-14] MEDS ORDERED: MORPHINE 4 MG/1 ML INJ IV ONE (18:03)
--- NOTE | 2022-04-14 18:21 | XRay Report ---
CHEST 1 VIEW 04/14/2022 5:11 PM INDICATION / CLINICAL INFORMATION: Chest Pain. COMPARISON: October 28, 2017 FINDINGS: SUPPORT DEVICES: None. HEART / MEDIASTINUM: No significant abnormality. LUNGS / PLEURA: Mild increased density extending to the right lower lung could represent pulmonary va scularity versus developing infiltrate. No pneumothorax. Signer Name: Tong Bailey MD Signed: 04/14/2022 6:16 PM Workstation Name: [email or web address]
[2022-04-14 19:01] LABS: Basophils # (Auto) 0.1 K/mm3 (0.0-0.1); Basophils % (Auto) 0.6 % (0.0-1.8); Eosinophils % (Auto) 0.2 % (0.0-4.3); Hematocrit 46.2 % (35.5-45.6); Lymphocytes # (Auto) 2.3 K/mm3 (1.2-5.4); Mean Corpuscular HGB Conc 35 % (32-34); Mean Corpuscular Volume 86 fl (84-94); Monocytes % (Auto) 7.3 % (0.0-7.3); Platelet Count 218 K/mm3 (140-440); Red Blood Count 5.38 M/mm3 (3.65-5.03); Red Cell Distribution Width 13.6 % (13.2-15.2)
[2022-04-14 19:17] LABS: Alanine Aminotransferase 20 units/L (7-56); Albumin 4.5 g/dL (3.9-5); BUN/Creatinine Ratio 12; Blood Urea Nitrogen 12 mg/dL (9-20); Calcium 9.4 mg/dL (8.4-10.2); Hemolysis Index 7
[2022-04-14 19:22] VITALS: BP 183/100
--- NOTE | 2022-04-14 19:45 | Emergency Department Report ---
<ROBERTO JIMENEZ K - Last Filed: 04/15/22 00:03> ED Chest Pain HPI - General Chief Complaint: Chest Pain Stated Complaint: CHEST PAIN Time Seen by Provider: 04/14/22 17:40 - Related Data Home Medications Medication Instructions Recorded Confirmed Last Taken Aspirin EC [Halfprin EC] 324 mg PO QDAY 10/27/17 10/27/17 10/27/17 13:00 Metoprolol [Lopressor TAB] 25 mg PO BID 10/27/17 10/27/17 10/27/17 12:00 Previous Rx's Medication Instructions Recorded Last Taken Type AtorvaSTATin [Lipitor] 40 mg PO QHS #30 tablet 10/26/17 Unknown Rx Clopidogrel [Plavix] 75 mg PO QDAY #30 tablet 10/26/17 10/27/17 12:00 Rx ISOSORBIDE MONOnitrate [Imdur ER] 30 mg PO QDAY #30 tablet 10/26/17 10/27/17 12:00 Rx Azithromycin [Zithromax Z-NOEMI] 0 mg PO DAILY #1 tab 10/29/17 Unknown Rx Zolpidem [Ambien] 5 mg PO QHS PRN #4 tablet 10/29/17 Unknown Rx Ibuprofen [Motrin 800 MG tab] 800 mg PO Q8HR PRN #20 tablet 04/15/22 Unknown Rx Promethazine [Phenergan] 25 mg PO Q6HR PRN #20 tab 04/15/22 Unknown Rx Promethazine [Phenergan] [address] Q6HR PRN #5 supp.rect 04/15/22 Unknown Rx levoFLOXacin [Levaquin TAB] 500 mg PO QDAY #7 tablet 04/15/22 Unknown Rx oxyCODONE /ACETAMINOPHEN [Percocet 1 - 2 tab PO Q6HR PRN #14 tablet 04/15/22 Unknown Rx 5/325] Allergies Allergy/AdvReac Type Severity Reaction Status Date / Time No Known Allergies Allergy Verified 10/27/17 15:01 ED Past Medical Hx - Medications Home Medications: Home Medications Medication Instructions Recorded Confirmed Last Taken Type AtorvaSTATin [Lipitor] 40 mg PO QHS #30 tablet 10/26/17 10/27/17 Unknown Rx Clopidogrel [Plavix] 75 mg PO QDAY #30 tablet 10/26/17 10/27/17 10/27/17 12:00 Rx ISOSORBIDE MONOnitrate [Imdur ER] 30 mg PO QDAY #30 tablet 10/26/17 10/27/17 10/27/17 12:00 Rx Aspirin EC [Halfprin EC] 324 mg PO QDAY 10/27/17 10/27/17 10/27/17 13:00 History Metoprolol [Lopressor TAB] 25 mg PO BID 10/27/17 10/27/17 10/27/17 12:00 History Azithromycin [Zithromax Z-NOEMI] 0 mg PO DAILY #1 tab 10/29/17 Unknown Rx Zolpidem [Ambien] 5 mg PO QHS PRN #4 tablet 10/29/17 Unknown Rx Ibuprofen [Motrin 800 MG tab] 800 mg PO Q8HR PRN #20 tablet 04/15/22 Unknown Rx Promethazine [Phenergan] 25 mg PO Q6HR PRN #20 tab 04/15/22 Unknown Rx Promethazine [Phenergan] [address] Q6HR PRN #5 supp.rect 04/15/22 Unknown Rx levoFLOXacin [Levaquin TAB] 500 mg PO QDAY #7 tablet 04/15/22 Unknown Rx oxyCODONE /ACETAMINOPHEN [Percocet 1 - 2 tab PO Q6HR PRN #14 tablet 04/15/22 Unknown Rx 5/325] ED Course - Reevaluation(s) Reevaluation #1: 04/15/22 00:03 Patient denies complaints at this time. Patient CT scan was discussed with the patient and need for follow-up with urology. Patient verbalized understanding ED Medical Decision Making - Lab Data Result diagrams: 04/14/22 18:52 04/14/22 18:52 ED Disposition Clinical Impression: Renal colic, Atypical chest pain Disposition: 01 HOME / SELF CARE / HOMELESS Is pt being admited?: No Does the pt Need Aspirin: No Condition: Stable Instructions: Renal Colic, [id number], Nonspecific Chest Pain, Adult Additional Instructions: Return to the emergency department should you develop worsening symptoms, inability to tolerate food or liquids, high fever or any other concerns Prescriptions: levoFLOXacin [Levaquin TAB] 500 mg PO QDAY #7 tablet Ibuprofen [Motrin 800 MG tab] 800 mg PO Q8HR PRN #20 tablet PRN Reason: Pain, Moderate (4-6) oxyCODONE /ACETAMINOPHEN [Percocet 5/325] 1 - 2 tab PO Q6HR PRN #14 tablet PRN Reason: Pain Promethazine [Phenergan] 25 mg PO Q6HR PRN #20 tab PRN Reason: Nausea Promethazine [Phenergan] [address] Q6HR PRN #5 supp.rect PRN Reason: Vomiting Referrals: RADHA BAHENA MD [Staff Physician] - 3-5 Days (Dr Bahena is a urologist. Please follow-up with him for further evaluation) Time of Disposition: 00:06 <SARAHI MORELTanner - Last Filed: 04/20/22 22:51> ED Chest Pain HPI - General Source: patient, EMS Mode of arrival: Stretcher Limitations: No Limitations - History of Present Illness Initial Comments: Patient is a 51-year-old male presenting to ED with complaint of chest pain beginning this morning. He describes the pain as a sharp burning sensation. He also reports severe left periumbilical/lower abdominal pain that began around the same time which he feels could be a kidney stone. He denies any dysuria or hematuria. Severity scale (0 -10): 10 Heart Score - HEART Score History: Slightly suspicious EKG: Normal Age: 45-65 Risk factors: 1-2 risk factors Troponin: < normal limit HEART Score: 2 - EKG Read Time Time EKG Completed: 15:12 EKG Read Time: 15:15 - Critical Actions Critical Actions: 0-3 pts:0.9-1.7%risk of adverse cardiac event.Candidate for d ischarge ED Review of Systems ROS: Stated complaint: CHEST PAIN Other details as noted in HPI Comment: All other systems reviewed and negative Constitutional: no symptoms reported Respiratory: denies: cough, shortness of breath, wheezing Cardiovascular: denies: chest pain, palpitations Gastrointestinal: denies: abdominal pain, nausea, diarrhea Musculoskeletal: denies: back pain, joint swelling, arthralgia Skin: denies: rash, lesions Neurological: denies: headache, weakness, paresthesias Psychiatric: denies: anxiety, depression ED Past Medical Hx - Past Medical History Previous Medical History?: Yes Hx Hypertension: Yes Hx CVA: Yes (tia) Hx Heart Attack/AMI: Yes Hx Congestive Heart Failure: No Hx Diabetes: No Hx Deep Vein Thrombosis: No Hx Pulmonary Embolism: No Hx GERD: No Hx Liver Disease: No Hx Renal Disease: No Hx of Cancer: No Hx Sickle Cell Disease: No Hx Arthritis: No Hx Headaches / Migraines: No Hx Seizures: No Hx Kidney Stones: No Hx Psychiatric Treatment: No Hx Asthma: No Hx COPD: No Hx Tuberculosis: No Hx Dementia: No Hx HIV: No - Surgical History Past Surgical History?: No Hx Coronary Stent: Yes Hx Open Heart Surgery: No Hx Pacemaker: No Hx Internal Defibrillator: No Hx Cholecystectomy: No Hx Appendectomy: No Hx Breast Surgery: No - Social History Smoking Status: Current Every Day Smoker Substance Use Type: None ED Physical Exam - General Limitations: No Limitations General appearance: alert, in no apparent distress - Head Head exam: Present: atraumatic, normocephalic - Respiratory Respiratory exam: Present: normal lung sounds bilaterally. Absent: respiratory distress - Cardiovascular Cardiovascular Exam: Present: regular rate, normal rhythm, normal heart sounds - GI/Abdominal GI/Abdominal exam: Present: soft, tenderness (Tenderness to periumbilical region and left lower abdomen). Absent: distended, guarding, rebound, mass, bruit, pulsatile mass - Rectal Rectal exam: Present: deferred - Neurological Exam Neurological exam: Present: alert, oriented X3 - Psychiatric Psychiatric exam: Present: normal affect, normal mood - Skin Skin exam: Present: warm, dry, intact, normal color ED Course Vital Signs 04/14/22 04/14/22 04/14/22 16:22 17:55 18:18 Temperature 98.9 F 98.8 F Pulse Rate 108 H 88 92 H Respiratory 18 18 Rate Blood Pressure 192/111 Blood Pressure 201/127 214/126 [Left] O2 Sat by Pulse 99 99 Oximetry 04/14/22 19:19 Temperature Pulse Rate 95 H Respiratory 16 Rate Blood Pressure Blood Pressure 183/100 [Left] O2 Sat by Pulse 99 Oximetry BUBBA score - Bubba Score Age > 65: (0) No Aspirin use within the Past 7 Days: (0) No 3 or more CAD Risk Factors: (1) Yes 2 or more Angina events in past 24 hrs: (1) Yes Known CAD with more than 50% Stenosis: (0) No Elevated Cardiac Markers: (0) No ST Deviation Greater than 0.5mm: (1) Yes BUBBA Score: 3 ED Medical Decision Making - Lab Data Result diagrams: 04/14/22 18:52 04/14/22 18:52 - Medical Decision Making 51-year-old male presenting to ED with complaint of chest pain and abdominal pain beginning this morning. He was also noted to be significantly hypertensive with blood pressure of 201/127. He was given IV hydralazine. Given the nature of his pain combined with hypertension aortic dissection is in the differential. Will obtain CTA chest abdomen and pelvis. EKG performed and s hows no acute ischemic findings. Troponin is undetectable. Critical care attestation.: If time is entered above; I have spent that time in minutes in the direct care of this critically ill patient, excluding procedure time.
--- NOTE | 2022-04-14 20:28 | Cat Scan Report ---
CT head/brain wo con INDICATION: Left hand numbness. TECHNIQUE: Routine CT head. All CT scans at this location are performed using CT dose reduction for A IOANA by means of automated exposure control. COMPARISON: None. FINDINGS: Intracranial: Singletary-white matter differentiation is maintained. No intracranial hemorrhage. No extra a xial collection. No hydrocephalus. No herniation. Small quantity of scattered areas of white matter h ypoattenuation most consistent with sequela of chronic microvascular disease. Sinuses: Paranasal sinuses and mastoid air cells are essentially clear. Orbits: Globes are intact. Calvarium: No acute fracture. IMPRESSION: 1. No acute intracranial abnormality. Signer Name: Cj Hu MD Signed: 04/14/2022 8:23 PM Workstation Name: [id number]
--- NOTE | 2022-04-14 20:49 | Cat Scan Report ---
CTA CHEST, ABDOMEN, AND PELVIS (AORTIC DISSECTION) INDICATION / CLINICAL INFORMATION: Chest pain/abdominal pain/rule out dissection. TECHNIQUE: Axial CT images were obtained through the chest, abdomen, and pelvis before and after inje ction of 100 cc of Omnipaque 350 IV contrast. 3 plane MIP and/or 3D reconstructions were produced. Al l CT scans at this location are performed using CT dose reduction for ALARA by means of automated exp osure control. COMPARISON: 01/25/2021 FINDINGS: HEART: - Size: Normal. - [place] Coronary Atherosclerosis: Severe. - Pericardium: No pericardial effusion. THORACIC AORTA: - Dissection: No dissection. - Aneurysm: No aneurysm or pseudoaneurysm. - Atherosclerosis: Mild atherosclerosis. GREAT VESSELS: No acute abnormality. No significant atherosclerosis. PULMONARY ARTERIES: No pulmonary emboli. CHEST VEINS: Single SVC of normal caliber as visualized to the right of midline. No significant abnor mality. ABDOMINAL AORTA: - Dissection: No dissection. - Aneurysm: No aneurysm or pseudoaneurysm. - Atherosclerosis: Mild atherosclerosis. CELIAC TRUNK: No significant abnormality. SUPERIOR MESENTERIC ARTERY: Mild atherosclerosis RENAL ARTERIES: Mild atherosclerosis INFERIOR MESENTERIC ARTERY: No significant abnormality. RIGHT ILIAC ARTERIES: No acute abnormality. Mild atherosclerosis. LEFT ILIAC ARTERIES: No acute abnormality. Severe atherosclerosis. RIGHT FEMORAL ARTERIES: No acute abnormality. Mild atherosclerosis. LEFT FEMORAL ARTERIES: No acute abnormality. Mild atherosclerosis. ABDOMINOPELVIC VEINS: Single IVC of normal caliber to the right of midline. No significant abnormalit y. ADDITIONAL CHEST FINDINGS: Unchanged 6 mm right upper lobe pulmonary nodule. Unchanged 6 mm right mid dle lobe nodule. ADDITIONAL ABDOMINOPELVIC FINDINGS: Diverticulosis without diverticulitis. There is a 0.8 cm stone wi thin the mid left ureter. This causes moderate hydroureteronephrosis and perinephric fat stranding. SKELETAL SYSTEM: No significant abnormality. IMPRESSION: 1. No dissection. There is scattered atherosclerotic disease as detailed above. 2. There is an 8 mm stone within the left mid ureter which causes moderate hydroureteronephrosis and perinephric fat stranding. Signer Name: Carlos Cloud DO Signed: 04/14/2022 8:45 PM Workstation Name: [id number]
[2022-04-14 22:06] LABS: Bilirubin,Urine NEG (Negative); Blood,Urine LG (Negative); Color,Urine Yellow (Yellow); Protein,Urine <15 mg/dL mg/dL (Negative); Urobilinogen,Urine < 2.0 mg/dL (<2.0)
[2022-04-14 22:11] LABS: RBC,Urine > 182.0 /HPF (0.0-6.0)
[2022-04-14] MEDS ORDERED: levoFLOXacin 500 MG TAB PO ONE (22:46)
--- NOTE | 2022-04-16 15:13 | Electrocardiograph Report ---
[facility], [place] Test Date: 2022-04-14 Test Time: 17:52:51 Pat Name: LILY ZAPATA Department: Room: Gender: M Trainman: GIORGI : 1970 Requested By: SARAHI MOREL Order Number: [id number] Reading MD: Ry Queen Measurements Intervals [place] Rate: 91 P: 66 [place]: 134 QRS: 58 QRSD: 94 T: -19 QT: 377 QTc: 464 Interpretive Statements Sinus rhythm Left atrial enlargement Inferior infarct, age indeterminate Compared to ECG 01/27/2021 07:41:32 Atrial abnormality now present Myocardial infarct finding now present Electronically Signed On 04-16-2022 15:12:55 EDT by Ry Queen
== END 2022-04-15 00:40 | disposition home or self-care (01) ==
LOC: ED 15:58
DX: R07.9 Chest pain, unspecified (principal); R10.30 Lower abdominal pain, unspecified; I10 Essential (primary) hypertension; I21.9 Acute myocardial infarction, unspecified; Z86.73 Personal history of transient ischemic attack (TIA), and cerebral infarction without residual deficits; Z98.890 Other specified postprocedural states; Z79.899 Other long term (current) drug therapy; F17.200 Nicotine dependence, unspecified, uncomplicated
CPT/HCPCS: 36415; 70450; 71045; 71275; 74174; 80053; 81001; 84484; 85025; 87086; 93005; 96374; 96375; 99285; J0360; J2270; Q9967